=== PATIENT | male | born 1985 | race African-American/Black ===

== ENCOUNTER 2021-05-19 20:10 | Emergency (ER) | payer BC ==
[~2021-05-19] VITALS: Ht 185.4 cm; Wt 90.4 kg
[2021-05-19] MEDS ORDERED: TETRACAINE 0.5% OPHTH SOLUTION 4ML BOTTLE. OU ONE (22:00)
[2021-05-19] MEDS ORDERED: FLUORESCEIN OPHTH TEST STRIP. OU ONE (22:00)
--- NOTE | 2021-05-19 22:37 | RAD ---
Exam: CT of orbits without INDICATION: Mental changes at 4 days TECHNIQUE: Sequential axial images through the orbits obtained without IV contrast. Sagittal and dino nal reformatted images were reconstructed from the axial data and reviewed. Exposure: One or more of the following in the visualized dose reduction techniques were utilized for this examination: 1. Automated exposure control 2. Adjustment of the MA and/or KV according to patient size 3. Use of iterative of reconstructive technique Comparisons: None FINDINGS: Visualized intracranial structures are unremarkable. Globes and orbital contents are normal. No radio paque foreign body identified. Visualized portions of paranasal sinuses and mastoid air cells are well-pneumatized. Dental caries noted at the right maxillary third molar. No acute or healed fractures. IMPRESSION: No radiopaque foreign body identified. Electronically signed by: Jes Marvin MD (05/19/2021 10:35 PM) [facility]
[2021-05-19] MEDS ORDERED: POLY10DR EACHEYE (22:46)
--- NOTE | 2021-05-19 22:53 | ED.ADGEN ---
Past Medical History Past Medical History: No Pertinent History Past Surgical History: Other Additional Past Surgical Histo: LEFT SHOULDER SX Smoking Status: Current Every Day Smoker Alcohol Use: Occasionally Drug Use: None General Adult EDM: Chief Complaint: FOREIGN BODY/EYES HPI: HPI: Patient is a 35 year old AA male who presents emergency department with complaints of possible metal shavings in both of his eyes for the last 4 days. Patient states that he was grinding a bolt off when he felt something go into his eyes. He has been flushing his eyes out with [id number] eyedrops frequently. He denies any vision changes. Patient reports that he has had a moderate amount of yellow to green discharge from his eyes. He denies any photosensitivity. Patient denies any fever, cough, sore throat, body aches, fatigue, abdominal pain, nausea, vomiting, or diarrhea. He currently rates the discomfort a 5 out of 10 on the pain scale, he denies any alleviating factors. Review of Systems: Review of Systems: Complete ROS is negative unless otherwise noted in HPI. Current Medications: Current Medications Medications (Trade) Dose Ordered Sig/Layla Start Time Stop Time Status Last Admin Dose Admin Erythromycin (Romycin) 0.25 inch 1X ONCE 05/19/21 23:00 05/19/21 23:01 DC 05/19/21 23:10 0.25 INCH Fluorescein Sodium (Ful-Sofia) 1 strip 1X ONCE 05/19/21 22:00 05/19/21 22:01 DC 05/19/21 22:00 1 STRIP Tetracaine HCl (Tetracaine) 1 drop 1X ONCE 05/19/21 22:00 05/19/21 22:01 DC 05/19/21 22:00 1 DROP Allergies: Allergies: Allergies Coded Allergies Type Severity Reaction Last Updated Verified No Known Drug Allergies 08/20/15 No Physical Exam: PE: See Above Constitutional: Well developed, well nourished, no acute distress, non-toxic appearance. [] HENT: Normocephalic, atraumatic, bilateral external ears normal, nose normal. [] Eyes: PERRLA, EOMI, conjunctiva injected bilaterally with purulent discharge bilaterally, no visible foreign bodies Neck: Normal range of motion, no stridor. [] Cardiovascular:Heart rate regular rhythm Lungs & Thorax: Respirations even and unlabored, no retractions, no respiratory distress Skin: Warm, dry, no erythema, no rash. [] Extremities: No cyanosis, ROM intact, no edema. [] Neurologic: Alert and oriented X 3, no focal deficits noted. [] Psychologic: Affect normal, judgement normal, mood normal. [] Current Patient Data: Vital Signs: Vital Signs Date Time Temp Pulse Resp B/P (MAP) Pulse Ox O2 Delivery O2 Flow Rate FiO2 05/19/21 23:44 98.6 84 16 140/62 (88) 99 Room Air 98.6 EKG: EKG: [] Heart Score: C/O Chest Pain: No Radiology/Procedures: Radiology/Procedures: Using tetracaine and fluroscein the patient's eyes were examined under Wood's lamp and no areas of uptake were appreciated. Patient's ocular symptoms have stabilized while they have been evaluated in the department and are appropriate for outpatient work up. No evidence of ruptured globe, retinal detachment, acute angle closure glaucoma, or deep space infection. Plan for follow-up with Dr. Espino in 1 to 2 days REASON: feels like metal shavings are stuck in eyes x4 days PROCEDURE: CT ORBITS WO CONTRAST Exam: CT of orbits without INDICATION: Mental changes at 4 days TECHNIQUE: Sequential axial images through the orbits obtained without IV contrast. Sagittal and coronal reformatted images were reconstructed from the axial data and reviewed. Exposure: One or more of the following in the visualized dose reduction techniqu es were utilized for this examination: 1. Automated exposure control 2. Adjustment of the MA and/or KV according to patient size 3. Use of iterative of reconstructive technique Comparisons: None FINDINGS: Visualized intracranial structures are unremarkable. Globes and orbital contents are normal. No radiopaque foreign body identified. Visualized portions of paranasal sinuses and mastoid air cells are well- pneumatized. Dental caries noted at the right maxillary third molar. No acute or healed fractures. IMPRESSION: No radiopaque foreign body identified. Electronically signed by: Jes Marvin MD (05/19/2021 10:35 PM) [facility] Course & Med Decision Making: Course & Med Decision Making Pertinent Labs and Imaging studies reviewed. (See chart for details) [] Dragon Disclaimer: Dragon Disclaimer: This electronic medical record was generated, in whole or in part, using a voice recognition dictation system. Departure Departure Impression: Primary Impression: Conjunctivitis, acute, bilateral Disposition: HOME / SELF CARE / HOMELESS Condition: STABLE Referrals: NO PCP (PCP) SUNNY ESPINO MD Patient Instructions: Conjunctivitis (Viral and Bacterial) Additional Instructions: Fill the prescription(s) and use as directed. You can take Tylenol and ibu profen as needed for pain. Apply warm, moist washcloths to eyes needed for comfort. Recommend use of baby shampoo to wash eyelids. Follow-up with Dr. Espino in 1 to 2 days for reevaluation or your primary care doctor. Return to the emergency room if your symptoms worsen. Scripts Polymyxin B Sulf/Trimethoprim (POLYTRIM EYE DROPS) 10 Ml Drops 2 DROP EACHEYE Q6HRS for 7 Days, #10 ML 0 Refills Prov: EREN PA [employer] 05/19/21 Problem Qualifiers Primary Impression: Conjunctivitis, acute, bilateral Acute conjunctivitis type: unspecified Qualified Codes: H10.33 - Unspecified acute conjunctivitis, bilateral EREN PA [employer] CONSULTANT May 19, 2021 22:53
[2021-05-19] MEDS ORDERED: ERYTHROMYCIN 0.5% OPHTH OINTMENT 1GM TUBE. OU ONE (23:00)
[2021-05-19 23:44] VITALS: BP 140/62
== END 2021-05-19 23:45 | disposition home or self-care (01) ==
LOC: ER 20:10
DX: H10.33 Unspecified acute conjunctivitis, bilateral (principal); F17.200 Nicotine dependence, unspecified, uncomplicated
CPT/HCPCS: 70480; 99284-25